=== PATIENT | female | born 1955 | race American Indian/Alaskan Native ===

== ENCOUNTER 2019-01-19 10:17 | Day surgery (SDC) | payer MEDICAID ==
[2019-01-19] MEDS ORDERED: Lactated Ringer's 500 ML IV ONE (10:33)
[2019-01-19] MEDS ORDERED: Propofol 10 mg/ml Inj (20 ML) ONE (10:39)
[2019-01-19 10:42] VITALS: BMI 27.3
[2019-01-19 10:54] VITALS: TEMP 96.8
[2019-01-19] MEDS ORDERED: Midazolam 2 MG/2 ML VIAL ONE (11:51)
[2019-01-19 12:19] VITALS: BP 140/75; PULSE 70; RESP 14; O2SAT 96
== END 2019-01-19 14:12 | disposition home or self-care (01) ==
LOC: H.ENDO 10:17
PROVIDERS: ATTEND Internal Medicine Gastroenterology
DX: Z12.11 Encounter for screening for malignant neoplasm of colon (principal); Z21 Asymptomatic human immunodeficiency virus [HIV] infection status; I10 Essential (primary) hypertension
CPT/HCPCS: G0121; J2001; J2250; J2704; J7120